=== PATIENT | female | born 1965 | race Caucasian/White ===

== ENCOUNTER 2022-09-01 07:14 | Day surgery (SDC) | payer OTHER, SELFPAY ==
[2022-09-01] MEDS: TETRACAINE 0.5% OPHTH 1 DROP EYE-LEFT ×2 (07:30→07:35)
[2022-09-01] MEDS: KETOROLAC OPHTH 0.5% 1 DROP EYE-LEFT ×2 (07:30→07:35)
[2022-09-01] MEDS: SODIUM CHLORIDE 0.9 % (FLUSH) 10 ML SYRINGE IVF (07:30)
--- NOTE | 2022-09-01 07:37 | SUR.PREOP ---
HOME COVID ANTIGEN TEST NEGATIVE DONE 08/31/22.
[2022-09-01 07:38] VITALS: BP 155/86; PULSE 62; RESP 16; TEMP 36.6; O2SAT 96
[2022-09-01 07:41] VITALS: BMI 30.2
[2022-09-01] MEDS: TETRACAINE 0.5% OPHTH 2 DROP EYE-LEFT (08:49)
[2022-09-01] MEDS: BALANCED SALT IRRIG SOLN 15 ML EYE-LEFT (08:54)
--- NOTE | 2022-09-01 08:55 | W.ANESCHARGE ---
Anesthesia Charges Start Date/Time Anesthesia Start Date: 09/01/22 Anesthesia Start Time: 08:46 Stop Date/Time Anesthesia Stop Date: 09/01/22 Summary Emergency: No
--- NOTE | 2022-09-01 09:08 | W.ANESCHARGE ---
Anesthesia Charges Start Date/Time Anesthesia Start Date: 09/01/22 Anesthesia Start Time: 08:46 Stop Date/Time Anesthesia Stop Date: 09/01/22 Anesthesia Stop Time: 09:18 Summary Emergency: No Extremes of Age: Over 68-CPT [id number]
[2022-09-01 09:17] VITALS: BP 152/96; PULSE 59; RESP 16; TEMP 36.7; O2SAT 97
--- NOTE | 2022-09-01 09:31 | W.ANESCHARGE ---
Anesthesia Charges Start Date/Time Anesthesia Start Date: 09/01/22 Anesthesia Start Time: 08:46 Stop Date/Time Anesthesia Stop Date: 09/01/22 Anesthesia Stop Time: 09:18 Summary Emergency: No
--- NOTE | 2022-09-01 13:25 | W.PM.OPTPROC ---
Procedure Note Date of procedure: 09/01/22 Will [facility] bill your pro fee for this procedure?: Yes Procedure Description: SURGEON: Ashley Chadwick MD PREOPERATIVE DIAGNOSIS: Nuclear sclerotic cataract, left eye. POSTOPERATIVE DIAGNOSIS: Nuclear sclerotic cataract, left eye. NAME OF OPERATION: Phacoemulsification of cataract with posterior chamber intraocular lens implantation in the left eye. ANESTHESIA: Topical. ESTIMATED BLOOD LOSS: Less than 2 cc. COMPLICATIONS: None. PATHOLOGY SPECIMEN: None. INDICATIONS: See consult note for details. The risks, benefits and alternatives of the procedure were explained to the patient, who elected to proceed and signed informed consent to do so. PROCEDURE: The patient was brought to the pre-holding area where the left eye was identified as the operative eye. I placed my initials above this eye. The patient received eye drops consisting of 0.5% tetracaine, 1% tropicamide, 10% phenylephrine, and 0.5% ketorolac. The patient was then brought to the operating room where the left eye was again identified as the operative eye. The eye was prepped with Betadine and draped in the usual sterile ophthalmic fashion. A #15 super-sharp blade was used to create a paracentesis site. 1% non-preserved intracameral lidocaine was injected into the anterior chamber. Endocoat was injected into the anterior chamber. A 2.4 mm keratome was used to create a three-plane self-sealing incision 1 mm anterior to the temporal limbus. A cystotome was used to create an anterior capsular leaflet. The Utrata forceps were used to extend this to form a continuous curvilinear capsulorrhexis. Hydrodissection was performed. The cataract was removed with phacoemulsification using the [id number]-hyfrusr technique. The irrigation and aspiration tip was used to remove the remaining cortex. Healon was injected into the capsular bag. An ANDREW ZCB00 intraocular lens of 15.0 diopters was injected into the capsular bag. The irrigation and aspiration tip was used to remove the remaining viscoelastic. Balanced salt solution on a cannula was used to hydrate the wound, and the wound was found to be watertight. The pupil was noted to be round. DISPOSITION: The patient was taken to the recovery room and discharged to home in stable condition. The patient was instructed to call me or go to the emergency department with any sudden change, including dramatic loss of vision, severe pain in the eye or eyebrow region, nausea, or vomiting. The patient will follow up in the clinic tomorrow morning. Surgeon: Ashley Chadwick MD
== END 2022-09-01 09:56 | disposition home or self-care (01) ==
PROVIDERS: PCP Internal Medicine; Visit Provider Ophthalmology
PROC: (CPT 66984; principal; 2022-09-01 07:30)
DX: H25.12 Age-related nuclear cataract, left eye (principal)
CPT/HCPCS: 66984; 00142; 99100; A9270; J2250; J3010; V2632

== ENCOUNTER 2022-09-15 09:34 | Day surgery (SDC) | payer OTHER, SELFPAY ==
[2022-09-15] MEDS: KETOROLAC OPHTH 0.5% 1 DROP EYE-RIGHT ×2 (09:50→09:55)
[2022-09-15] MEDS: TETRACAINE 0.5% OPHTH 1 DROP EYE-RIGHT ×2 (09:50→09:55)
[2022-09-15 09:51] VITALS: BP 164/77; PULSE 65; RESP 16; TEMP 36.7; O2SAT 97
[2022-09-15 09:53] VITALS: BMI 30.2
[2022-09-15] MEDS: SODIUM CHLORIDE 0.9 % (FLUSH) 10 ML SYRINGE IVF (10:10)
--- NOTE | 2022-09-15 10:27 | SUR.PREOP ---
HOME COVID TEST NEGATIVE, DONE ON 09/14/22.
[2022-09-15] MEDS: TETRACAINE 0.5% OPHTH 2 DROP EYE-RIGHT (11:16)
[2022-09-15] MEDS: BALANCED SALT IRRIG SOLN 15 ML EYE-RIGHT (11:21)
--- NOTE | 2022-09-15 11:22 | W.ANESCHARGE ---
Anesthesia Charges Start Date/Time Anesthesia Start Date: 09/15/22 Anesthesia Start Time: 11:14 Stop Date/Time Anesthesia Stop Date: 09/15/22 Anesthesia Stop Time: 11:47
[2022-09-15 11:56] VITALS: BP 174/95; PULSE 61; RESP 16; TEMP 36.3; O2SAT 99
--- NOTE | 2022-09-15 13:04 | W.ANESCHARGE ---
Anesthesia Charges Start Date/Time Anesthesia Start Date: 09/15/22 Anesthesia Start Time: 11:14 Stop Date/Time Anesthesia Stop Date: 09/15/22 Anesthesia Stop Time: 11:47 Summary Emergency: No
--- NOTE | 2022-09-15 15:54 | P.OPTPRC_ITS ---
Procedure Note Date of procedure: 09/15/22 Will [facility] bill your pro fee for this procedure?: Yes Procedure Description: SURGEON: Ashley Chadwick MD PREOPERATIVE DIAGNOSIS: Nuclear sclerotic cataract, right eye. POSTOPERATIVE DIAGNOSIS: Nuclear sclerotic cataract, right eye. NAME OF OPERATION: Phacoemulsification of cataract with posterior chamber intraocular lens implantation in the right eye. ANESTHESIA: Topical. ESTIMATED BLOOD LOSS: Less than 2 cc. COMPLICATIONS: None. PATHOLOGY SPECIMEN: None. INDICATIONS: See consult note for details. The risks, benefits and alternatives of the procedure were explained to the patient, who elected to proceed and s igned informed consent to do so. PROCEDURE: The patient was brought to the pre-holding area where the right eye was identified as the operative eye. I placed my initials above this eye. The patient received eye drops consisting of 0.5% tetracaine, 1% tropicamide, 10% phenylephrine, and 0.5% ketorolac. The patient was then brought to the operating room where the right eye was again identified as the operative eye. The eye was prepped with Betadine and draped in the usual sterile ophthalmic fashion. A #15 super-sharp blade was used to create a paracentesis site. 1% non-preserved intracameral lidocaine was injected into the anterior chamber. Endocoat was injected into the anterior chamber. A 2.4 mm keratome was used to create a three-plane self-sealing incision 1 mm anterior to the temporal limbus. A cystotome was used to create an anterior capsular leaflet. The Utrata forceps were used to extend this to form a continuous curvilinear capsulorrhexis. Hydrodissection was performed. The cataract was removed with phacoemulsification using the [id number] technique. The irrigation and aspiration tip was used to remove the remaining cortex. Healon was injected into the capsular bag. An ANDREW ZCB00 intraocular lens of 14.0 diopters was injected into the capsular bag. The irrigation and aspiration tip was used to remove the remaining viscoelastic. Balanced salt solution on a cannula was used to hydrate the wound, and the wound was found to be watertight. The pupil was noted to be round. DISPOSITION: The patient was taken to the recovery room and discharged to home in stable condition. The patient was instructed to call me or go to the emergency department with any sudden change, including dramatic loss of vision, severe pain in the eye or eyebrow region, nausea, or vomiting. The patient will follow up in the clinic tomorrow morning. Surgeon: Ashley Chadwick MD
== END 2022-09-15 12:15 | disposition home or self-care (01) ==
PROVIDERS: PCP Internal Medicine; Visit Provider Ophthalmology
PROC: (CPT 66984; principal; 2022-09-15 09:45)
DX: H25.11 Age-related nuclear cataract, right eye (principal)
CPT/HCPCS: 66984; 00142; A9270; J2250; J3010; V2632

== ENCOUNTER 2024-02-06 07:32 | Day surgery (SDC) | payer OTHER, SELFPAY ==
[2024-02-06] VITALS (15 sets, daily range): BP systolic 124–177; BP diastolic 68–96; PULSE 63–78; RESP 16; TEMP 36.2–36.7; O2SAT 95–100; BMI 30.8
--- OUTSIDE RECORDS SUMMARY | 2024-02-06 07:35 | XMS_ITS | Clinical Summary ---
Author Name Unknown Organization [facility] Address [place], [place] [address] Care Team Providers Care Senior It Project Manager Name Role Phone Madison Alexander MD Primary Care Provider [phone] Allergies Active Allergy Reactions Criticality Noted Date Comments Lisinopril Cough 02/27/2014 Omeprazole Rash 11/14/2013 Prednisone Vomiting Medium 11/08/2022 Throws up Sulfa (Sulfonamide Antibiotics) Rash 01/27/2012 [facility] HUT Comment: [facility] Medications Medication Sig Dispensed Refills Start Date End Date Status Calcium-Vitamin D3-Vitamin K (VIACTIV) 500-500-40 mg-unit-mcg chewIndications:Ash garvin general medical examination at a health care facility Take 1 tablet by mouth once daily. 0 03/30/2019 Active fluticasone (50 mcg per actuation) nasal solution (FLONASE)Indications :Allergic rhinitis, unspecified seasonality, unspecified trigger Inhale 1 [place] to both nostrils once daily. 48 g 3 06/22/2023 Active levothyroxine (SYNTHROID) 88 mcg tabletIndications:Ac quired hypothyroidism Take 1 Tablet (88 mcg) by mouth before breakfast. 90 Tablet 3 06/22/2023 Active losartan-hydrochloro thiazide, 50-12.5 mg, (HYZAAR) 50-12.5 mg tabletIndications:Hy pertension Take 1 Tablet by mouth once daily. 90 Tablet 3 06/22/2023 Active oxyCODONE-acetaminop hen (Percocet) 5-325 mg per tabletIndications:Ca lculus of gallbladder without cholecystitis without obstruction,Abdomina l pain, unspecified abdominal location Take 1-2 Tablets by mouth every 6 hours if needed for Pain. Max acetaminophen dose: 4000mg in 24 hrs. 10 Tablet 01/03/2024 Active Active Problems Problem Noted Date Diagnosed Date Pap smear for cervical cancer screening 06/30/20 Overview: 06/2023 NIL/HPV negative. Plan: Pap/HPV due 06/2028 Mixed hyperlipidemia 06/22/2023 HTN (hypertension) 06/06/2021 Degenerative TFCC tear, right 10/26/2017 Allergic rhinitis, cause unspecified 01/27/2012 Hypothyroidism Overview: Family history of colon cancer Resolved Problems Problem Noted Date Diagnosed Date Resolved Date Foreign body (FB) in soft tissue 07/21/2020 06/09/2022 Wrist pain, right 10/26/2017 06/09/2022 Tendonitis of elbow, left 10/06/2012 Vitamin D deficiency 09/14/2012 019 UTI (lower urinary tract infection) 06/26/2012 02/11/2014 HTN (hypertension) 01/27/2012 4 Eosinophilia 10/12/2011 02/28/2014 Overview: Diarrhea 09/24/2011 02/27/2014 Overview: Diarrhea Other and unspecified noninf ectious gastroenteritis and colitis 09/08/2011 02/11/2014 Overview: Gastroenteritis Abdominal pain, unspecified site 09/08/2011 02/27/2014 Overview: Abdominal Pain Unspecified sinusitis (chronic) 07/19/2011 02/28/2014 Overview: Sinusitis Plantar fasciitis 04/23/2011 06/09/2022 Screening for malignant neop lasm of the cervix 01/19/2011 02/27/2014 Overview: Cervical Pap Smear Palpitations 12/14/2010 02/27/2014 Overview: Palpitations-negative event monitor 12/10 Anxiety state, unspecified 01/06/2010 0 02/28/2014 Overview: Anxiety Disorder NOS Hypertension 04/21/2020 Overview: Encounters Date Type Department Care Team Description 02/01/2024 3:30 PM CDT Preop Visit [facility] [address] [place] [address] Rosi Lakhani MD Pre-Op Exam (02-06-2024) 02/01/2024 Travel 01/19/2024 Medical Messaging [facility] [address] [place] [address] Brandi Dumont MD gall bladder surgery 01/17/2024 2:30 PM CDT Office Visit [facility] [address] [place] [address] Brandi Dumont MD Consult (gallstones) 01/17/2024 Travel 01/02/2024 10:02 PM CDT - 01/03/2024 5:53 AM CDT Emergency [facility] [address] [place] [address] Camacho Omalley MD Calculus of gallbladder without cholecystitis without obstruction (Primary Dx); Abdominal pain, unspecified abdominal location Discharge Disposition: Home Self Care 01/02/2024 Travel from Last 3 Months Immunizations Name Administration Dates Next Due COVID-19 vaccine ([employer] NTech 30mcg/0.3mL) PFMDV 12/25/2020,12/05/2020 Influenza, IIV3 (Age 6-35 mos) 05/26/2019 Influenza, IIV4 06/22/2023,,06/02/2020,08/03/20 18 Influenza,CCIIV4 PRESERV FREE 06/12/2022 Td (Age >=7 Years) 04/13/1994 Tdap 07/05/2020,12/14/2010 Zoster (Shingrix-RZV, recombinant) 05/22/2018, Zoster (Zostavax-ZVL, live) 10/16/2013 Family History Medical History Relation Name Comments Heart Disease Father [place] at 62 yr Hypertension Father Thyroid Disease Father Thyroid Disease Maternal Aunt Cancer-colon Mother age 65 Thyroid Disease Mother Thyroid Disease Paternal Grandfather Heart Disease Paternal Grandmother [place] at age 62 Thyroid Disease Sister Cancer-breast No Family History Relation Name Status Comments Father Alive Maternal Aunt Mother (Age 65) colon canc er Paternal Grandfather Paternal Grandmother Sister Social History Tobacco Use Types Packs/Day Years Used Date Smoking Tobacco: Never Smokeless Tobacco: Never Tobacco Cessation:Counseling Given: Yes Alcohol Use Standard Drinks/Week Comments Yes 1 (1 standard drink = 0.6 oz pur e alcohol) 1 drink per week sometimes PHQ-2 Answer Date Recorded PHQ-2 TOTAL SCORE 0 06/22/2023 Social Connections Answer Date Recorded Frequency of Communication with Friends and Fami ly 0 03/11/2023 Financial Resource Strain Answer Date R ecorded Difficulty of Paying Living Expenses 3 03/11/2023 Difficulty of Paying Living Expenses Not on file 03/11/2023 Food Insecurity Answer Date Recorded Worried About Running Out of Food in the Last Ye ar 1 03/11/2023 Transportation Needs Answer Date Record ed Lack of Transportation (Medical) 1 03/11/2023 Housing Stability Answer Date Recorded Unable to Pay for Housing in the Last Year 1 03/11/2023 Sex and Gender Information Value Date Recorded Sex Assigned at Not on file Gender Identity Not on file Sexual Orientation Not on file Obstetrics History Para Term AB IAB SAB Ectopic Multiple Livin g Live Births 2 2 Date Outcome GA Total Labor Labor/2nd/3rd Weight Sex Delivery Anes PTL Marta A1 A5 Name Cl in Last Filed Vital Signs Vital Sign Reading Time Taken Comments Blood Pressure 122/88 02/01/2024 3:24 PM CDT Pulse 78 02/01/2024 3:24 PM CDT Temperature 36.2 ??C (97.2 ??F) 02/01/2024 3:24 PM CD T Respiratory Rate 18 01/02/2024 10:04 PM CDT Oxygen Saturation 95% 02/01/2024 3:24 PM CDT Inhaled Oxygen Concentration - - Weight 74 kg (163 lb 3.2 oz) 02/01/2024 3:24 PM CDT Height 154.9 cm (5' 1) 01/02/2024 10:04 PM CDT Body Mass Index 30.84 01/02/2024 10:04 PM CDT Plan of Treatment Upcoming Encounters Date Type Department Care Team (Late st Contact Info) Description 02/06/2024 8:00 AM CDT Office Visit [facility] [address] [facility] [place] [address] Brandi Dumont MD [address] [place] [address] 02/15/2024 3:40 PM CDT Office Visit [facility] [address] [place] [address] Madison Alexander MD [address] [place] [address] Health Maintenance Due Date Last Done Comments HIV for age 15-65 12/30/1978 Influenza for age 50-64 06/03/2024 06/22/20, 06/12/2022, 06/04/2021, Additional history exists Mammogram for age 45-75 06/16/2024 06/16/20, 04/27/2022, 04/01/2021, Additional history exists BMI (ht and wt on same day) for age 18+ 06/22/2024 06/22/2023, 03/30/2023, 08/25/2022, Additional history exists Depression screening for age 12+ 06/22/2024 06/22/2023, 06/09/2022, 06/04/2021, Additional history exists Colonoscopy through age 75 07/04/202407/04, 07/29/2014, 07/29/2014 Lipids for age 45-75 03/30/2028 03/30/2023, 03/30/2023, 06/09/2022, Additional history exists Pap test for age 21-65 06/22/2028 , 06/22/2023, 04/21/2020, Additional history exists Tetanus booster 07/05/2030 07/05/2020, 12/01, 04/13/1994 Hepatitis C screening for age 18-79 Completed 03/22/2018 Zoster (shingles) series for age 50+ Completed 05/22/2018, 03/22/2018, 10/16/2013 Tdap Completed 07/05/2020, 12/14/2010 COVID-19 vaccine series Completed 07/03/20, 06/12/2022, 01/05/2022, Additional history exists Pneumococcal series for age 6-64 Aged Out No longer eligible based on patient's age to complete this topic Procedures Procedure Name Priority Date/Time Associated Diagnosis Comments TROPONIN T (HS) ONE TIME Timed 01/03/2024 1:12 AM CDT US ABDOMEN LIMITED GALLBLADDER STAT 01/02/2024 11:28 PM CDT CBC WITH AUTO DIFFERENTIAL STAT 01/02/2024 10:34 PM CDT TROPONIN T (HS) ACUTE W/2HR REFLEX STAT 01/02/2024 10:34 PM CDT LIPASE STAT 01/02/2024 10:34 PM CDT COMP METABOLIC PANEL STAT 01/02/2024 10:34 PM CDT CBC WITH AUTO DIFFERENTIAL STAT 01/02/2024 10:34 PM CDT BEDSIDE US STUDY ARCHIVE Routine 01/02/2024 10:14 PM CDT EKG 12 LEAD STAT 01/02/2024 10:12 PM CDT HPV THIN PREP Routine 06/22/2023 4:23 PM CDT Pap smear for cervical cancer screening XR MAMMO DRE BILAT SCREEN Routine 06/16/2023 4:23 PM CDT Encounter for screening mammogram for malignant neoplasm of breast LIPID PANEL W REFLEX MEASURED LDL Routine 03/30/2023 5:04 PM CDT Mixed hyperlipidemia COLONOSCOPY 07/04/2019 7:23 AM CDT ANTI HCV Routine 03/22/2018 5:18 PM CDT Need for hepatitis C screening test from Last 3 Months or Most Recently Relevant to Health Maintenance Results * (ABNORMAL) TROPONIN T (HS) ONE TIME (01/03/2024 1:12 AM CDT) TROPONIN T HS 12(H) 6-10 ng/L ng/L 01/03/2024 1:34 AM CDT [facility] Blood BLOOD SPECIMEN / Unknown IV Start / Unknown 01/03/2024 1:12 AM CDT 01/03/2024 1:16 AM CDT Camacho Omalley MD CHEMISTRY Performing Organization Address City/State/[facility] Co de Phone Number [facility] [address] [place] [address] * US ABDOMEN LIMITED GALLBLADDER (01/02/2024 11:28 PM CDT) Anatomical Region Laterality Modality Abdomen Ultrasound 01/02/2024 11:4 8 PM CDT Impressions 01/02/2024 11:48 PM CDT Cholelithiasis without evidence of cholecystitis. Dictated by Seb Guthrie MD @ 01/02/2024 11:48:38 PM (Electronically Signed) Narrative 01/02/2024 11:48 PM CDT For Patients: ??As a result of the Cures Act, medical imaging exams and procedure reports are released immediately into your electronic medical record. ??You may view this report before your referring provider. ??If you have questions, please contact your health care provider. INDICATION: Right upper quadrant abdominal pain. TECHNIQUE: Ultrasound abdomen limited. Sonographic images of the gallbladder were obtained using salmon-scale and color Doppler images. COMPARISON: None. FINDINGS: Gallbladder: Multiple mobile shadowing stones. Normal wall thickness. No pericholecystic fluid. Negative sonographic Duron`s sign. ?? Common bile duct: 3 mm. ?? Procedure Note Seb Guthrie MD - 01/02/2024 For Patients: As a result of the 21st Century Cures Act, medical imagingexams and procedure reports are released immediately into your electronicmedical record. You may view this report before your referring provider.If you have questions, please contact your health care provider. INDICATION: Right upper quadrant abdominal pain. TECHNIQUE: Ultrasound abdomen limited. Sonographic images of the gallbladder wereobtained using salmon-scale and color Doppler images. COMPARISON: None. FINDINGS: Gallbladder: Multiple mobile shadowing stones. Normal wall thickness. Nopericholecystic fluid. Negative sonographic Duron`s sign. Common bile duct: 3 mm. IMPRESSION: Cholelithiasis without evidence of cholecystitis. Dictated by Seb Guthrie MD @ 01/02/2024 11:48:38 PM (Electronically Signed) Camacho Omalley MD * (ABNORMAL) TROPONIN T (HS) ACUTE W/2HR REFLEX (01/02/2024 10:34 PM CDT) TROPONIN T HS 11(H) 6-10 ng/L ng/L 01/02/2024 11:30 PM CDT [facility] Blood BLOOD SPECIMEN / Unknown Butterfly / Unknown 01/02/2024 10:34 PM CDT 01/02/2024 10:44 PM CDT [facility] - 01/02/2024 11:30 PM CDT hs-cTnT (Elecsys Troponin T Gen 5) concentration (s) above the sex-specific 99th percentile (16 ng/L or greater for males or 11 ng/L or greater for females) are indicative of myocardial injury. If initial hs-cTnT <=100 ng/L at presentation, a 0h/2h ABSOLUTE (ng/L) delta change (rising or falling) of >=10 ng/L suggests a significant change, whereas a 0h/2h delta change <=3 ng/L suggests no significant change. If initial hs-cTnT >100 ng/L at presentation, a 0h/2h/ RELATIVE (percent, %) delta change of 20% is suggested to distinguish patients with acute vs. chronic myocardial injury. There are multiple etiologies that can cause hs-cTnT increases above the 99th percentile (myocardial injury) other than acute myocardial infarction. Clinical context and careful clinical evaluation are critical for diagnosis and risk-stratification. The diagnosis of acute myocardial infarction requires a rising and/or falling pattern in hs-cTnT concentrations with at least one value above the sex-specific 99th percentile PLUS at least one of the following clinical criteria: ischemic symptoms, new or presumed new significant ST-T wave changes or new LBBB, development of pathological Q waves, imaging evidence of new loss of viable myocardium or new regional wall motion abnormality, or identification of intracoronary atherothrombosis or an acute angiographic culprit on coronary angiography. In appropriate low-risk patients with a non-ischemic electrocardiogram without active chest pain with a symptom onset >3-hours without recurrence, a single initial hs-cTnT<6 ng/L identifies patient with a very low risk in emergency department patient population. Camacho Omalley MD CHEMISTRY [facility] [address] [place] [address] * (ABNORMAL) CBC WITH AUTO DIFFERENTIAL (01/02/2024 10:34 PM CDT) [facility] [address] WHITE BLOOD COUNT 8.6 4.5 - 11.0 thou/cu mm 01/02/2024 10:48 PM CDT [facility] RED BLOOD COUNT 4.05 4.00 - 5.20 mil/cu mm 01/02/2024 10:48 PM CDT [facility] HEMOGLOBIN 12.6 12.0 - 16.0 g/dL 01/02/2024 10:48 PM CDT [facility] HEMATOCRIT 37.8 33.0 - 51.0 % 01/02/2024 10:48 PM CDT [facility] MCV 93 80 - 100 fL 01/02/2024 10:48 PM CDT [facility] MCH 31.1 26.0 - 34.0 pg 01/02/2024 10:48 PM CDT [facility] MCHC 33.3 32.0 - 36.0 g/dL 01/02/2024 10:48 PM T [facility] RDW 12.0 11.5 - 15.5 % 01/02/2024 10:48 PM CDT [facility] PLATELET COUNT 401 140 - 440 thou/cu mm 01/02/2024 10:48 PM [facility] MPV 8.9 6.5 - 11.0 fL 01/02/2024 10:48 PM [facility] % NEUT 45.9 % 01/02/2024 10:48 PM [facility] % LYMPH 43.1 % 01/02/2024 10:48 PM [facility] % MONO 7.2 % 01/02/2024 10:48 PM [facility] % EOS 3.5 % 01/02/2024 10:48 PM [facility] % BASO 0.3 % 01/02/2024 10:48 PM [facility] ABSOLUTE NEUTROPHILS 3.9 1.7 - 7.0 thou/cu mm 01/02/2024 10:48 PM [facility] ABSOLUTE LYMPHOCYTES 3.7(H) 0.9 - 2.9 thou/cu mm 01/02/2024 10:48 PM [facility] ABSOLUTE MONOCYTES 0.6 <0.9 thou/cu mm 01/02/2024 10:48 PM [facility] ABSOLUTE EOSINOPHILS 0.3 <0.5 thou/cu mm 01/02/2024 10:48 PM [facility] ABSOLUTE BASOPHILS 0.0 <0.3 thou/cu mm 01/02/2024 10:48 PM [facility] Blood BLOOD SPECIMEN / Unknown Butterfly / Unknown 01/02/2024 10:34 PM CDT 01/02/2024 10:44 PM CDT Camacho Omalley MD HEMATOLOGY [facility] [address] [place] [address] * (ABNORMAL) LIPASE (01/02/2024 10:34 PM CDT) LIPASE 70.7(H) 13.0 - 60.0 IU/L 01/02/2024 11:30 PM [facility] Blood BLOOD SPECIMEN / Unknown Butterfly / Unknown 01/02/2024 10:34 PM CDT 01/02/2024 10:44 PM CDT Camacho Omalley MD CHEMISTRY [facility] [address] [place] [address] * (ABNORMAL) COMP METABOLIC PANEL (01/02/2024 10:34 PM CDT) SODIUM 138 136 - 145 mmol/L 01/02/2024 11:33 PM [facility] POTASSIUM 3.7 3.5 - 5.1 mmol/L 01/02/2024 11:33 PM [facility] CHLORIDE 101 98 - 107 mmol/L 01/02/2024 11:33 PM [facility] CO2,TOTAL 24 22 - 29 mmol/L 01/02/2024 11:33 PM [facility] ANION GAP 13 5 - 18 01/02/2024 11:33 PM [facility] GLUCOSE 115(H) 70 - 99 mg/dL 01/02/2024 11:33 PM [facility] CALCIUM 9.5 8.8 - 10.2 mg/dL 01/02/2024 11:33 PM [facility] BUN 23 8 - 23 mg/dL 01/02/2024 11:33 PM [facility] CREATININE 0.82 0.50 - 0.90 mg/dL 01/02/2024 11:33 PM [facility] BUN/CREAT RATIO 28(H) 10 - 20 11:33 PM [facility] eGFR 82(L) >90 mL/min/1.7 3m2 01/02/2024 11:33 PM [facility] Comment:As of 2021, eG FR is calculated by the CKD-EPI creatinine equation without race adjustment. ??eGFR can be influenced by muscle mass, exercise, and diet. ??The reported eGFR is an estimation only and is only applicable if the renal function is stable. ALBUMIN 4.1 4.0 - 4.9 g/dL 01/02/2024 11:33 PM CDT [facility] PROTEIN,TOTAL 6.6 6.0 - 8.0 g/dL 01/02/2024 11:33 PM CDT [facility] BILIRUBIN,TOTAL <0.2 0.0 - 1.2 mg/dL 01/02/2024 11:33 PM CDT [facility] ALK PHOSPHATASE 76 35 - 104 IU/L 01/02/2024 11:33 PM CDT [facility] ALT (SGPT) 15 10 - 35 IU/L 01/02/2024 11:33 PM CDT [facility] AST (SGOT) 19 10 - 35 IU/L 01/02/2024 11:33 PM CDT [facility] Blood BLOOD SPECIMEN / Unknown Butterfly / Unknown 01/02/2024 10:34 PM CDT 01/02/2024 10:44 PM CDT Camacho Omalley MD CHEMISTRY Performing Organization Address City/[facility]/ZIP Co de Phone Number [facility] [address] [place] [address] * EKG 12 LEAD (01/02/2024 10:12 PM CDT) Interpretation Normal sinus rhythm Low voltage QRS Borderline ECG No previous ECGs available BEYOND NOW Ventricular Rate 70 BPM BEYOND NOW Atrial Rate 70 BPM BEYOND NOW P-R Interval 156 ms BEYOND NOW QRS Duration 82 ms BEYOND NOW QT 404 ms BEYOND NOW QTc 436 ms BEYOND NOW P Madison 52 degrees BEYOND NOW R Madison 23 degrees BEYOND NOW T Madison 63 degrees BEYOND NOW 01/02/2024 10:1 2 PM CDT 01/02/2024 11:48 PM CDT Camacho Omalley MD EKG ORD Performing Organization Address City/[facility]/ZIP Co de Phone Number [facility] NOW [place], [place] * HPV HIGH RISK (06/22/2023 4:23 PM CDT) TYPE 16 Negative Negative 06/27/2023 2:05 PM CDT [facility] TYPE 18 Negative Negative 06/27/2023 2:05 PM CDT [facility] OTHER HIGH RISK TYPES Negative Negative 06/27/2023 2:05 PM CDT [facility] Other (Cervical) Non-Blood / Unknown 06/22/2023 4:23 PM CDT 06/23/2023 12:36 PM CDT Narrative [facility] - 06/27/2023 2:05 PM CDT HPV types 16, 18, 31, 33, 35, 39, 45, 51, 52, 56, 58, 59, 66 and 68 DNA were undetectable or below the pre-set threshold. Methodology: Accion Vicki 4800 HPV Test Madison Alexander MD MICROBIOLOGY [facility] [address] [place] [address], [place] * XR MAMMO DRE BILAT SCREEN (06/16/2023 4:23 PM CDT) Anatomical Region Laterality Modality BREASTS, Breast Left, Breast Right Bilateral Mammography 06/17/2023 7:17 AM CDT Impressions 06/17/2023 11:53 AM CDT 1. Small nodular densities in the lateral LEFT breast on the craniocaudad view are in the lower outer quadrant on the tomographic views. The more lateral of the nodules has increased in size. Recommend correlation with ultrasound. 2. No evidence malignancy in the RIGHT breast. 3. BI-RADS Category 0: Incomplete - Need Additional Imaging Evaluation and/or Prior Mammograms for Comparison. A member of the breast health care team will contact the patient to schedule the required additional imaging appointment(s). Dictated by: Ami Maldonado MD @06/17/2023 7:17:27 AM/MICHELLE:vickie PATIENTS: You will also receive a letter with your examination results in an easy to read format. ??If you have questions about your results, please contact your referring provider. Narrative 06/17/2023 11:53 AM CDT For Patients: As a result of the 21st Century Cures Act, medical imaging exams and procedure reports are released immediately into your electronic medical record. ??You may view this report before your referring provider. ?? If you have questions, please contact your health care provider. BILATERAL DIGITAL SCREENING MAMMOGRAM WITH TOMOSYNTHESIS AND COMPUTER-AIDED DETECTION, 06/16/2023 INDICATION: Screening. TECHNIQUE: BILATERAL screening mammogram. COMPARISON: 04/27/2022 and 04/01/2021. FINDINGS: The breasts are heterogeneously dense, which may obscure small masses. Benign-appearing calcifications in both breasts. Three small well-circumscribed densities are present deep in the lateral LEFT breast on the craniocaudad view. The most lateral of these has increased in size. The other two are unchanged. No other suspicious mass, architectural distortion or malignant calcification in either breast. Madison Alexander MD MAMMO * (ABNORMAL) LIPID PANEL W REFLEX MEASURED LDL (03/30/2023 5:04 PM CDT) CHOLESTEROL,TOTAL 288(H) 100 - 199 mg/dL 03/30/2023 5:56 PM [facility] TRIGLYCERIDES 633(H) <150 mg/dL 03/30/2023 5:56 PM [facility] HDL CHOLESTEROL 55 >40 mg/dL 3 5:56 PM [facility] NON-HDL CHOLESTEROL 233(H) <145 mg/dl 03/30/2023 5:56 PM [facility] CHOL/HDL RATIO 5.24(H) <4.50 03/30/2023 5:56 PM [facility] LDL CHOLESTEROL 3 5:56 PM [facility] Comment:Invalid LDL when Tri g >400, reflexed to measured LDL VLDL CHOLESTEROL COMMENT 03/30/2023 5:56 PM [facility] Comment:Unable to calculate VLDL. PROVIDER ORDERED STATUS RANDOM 03/30/2023 5:56 PM [facility] Blood BLOOD SPECIMEN / Unknown Venipuncture / Unknown 03/30/2023 5:04 PM CDT 03/30/2023 5:06 PM CDT Madison Alexander MD CHEMISTRY [facility] [address] [place] [address] * COLONOSCOPY (07/04/2019 7:23 AM CDT) 07/04/2019 7:23 AM CDT Narrative Transcriptions Clive Guadalupe MD - 07/04/2019 8:31 AM CDTThis note has been archived and cannot be retrieved at this time. Clive Guadalupe MD PROCEDURE ORD * ANTI HCV [[id number]] (03/22/2018 5:18 PM CDT) HEPATITIS C ANTIBODY Non-React hanna Non-React hanna 03/23/2018 5:13 PM CDT [facility] Comment:Antibodies to HCV no t detected; does not exclude the possibility of exposure to HCV. Blood BLOOD SPECIMEN / Unknown Venipuncture / Unknown 03/22/2018 5:18 PM CDT 03/22/2018 5:18 PM CDT Madison Alexander MD SEND OUTS [facility] [address] [place] [address], from Last 3 Months or Most Recently Relevant to Health Maintenance Care Teams Senior It Project Manager Relationship Specialty Start Date End Date Madison Alexander MD [address] [facility] [place] [address] PCP - General Internal Medicine 02/13/14
[2024-02-06] MEDS: LACTATED RINGERS 1000 ML 1,000 ML 100 ML IV ×2 (08:15→10:43)
[2024-02-06] MEDS: SODIUM CHLORIDE 0.9 % (FLUSH) 10 ML SYRINGE IVF (08:16)
[2024-02-06] MEDS: CEFAZOLIN 1 GM inj IVP (09:47)
--- NOTE | 2024-02-06 10:15 | W.ANESCHARGE ---
Anesthesia Charges Start Date/Time Anesthesia Start Date: 02/06/24 Anesthesia Start Time: 09:37 Stop Date/Time Anesthesia Stop Date: 02/06/24 Anesthesia Stop Time: 11:04
[2024-02-06] MEDS: BUPIVACAINE 0.25% 30 ML INJECTION (10:50)
--- NOTE | 2024-02-06 11:01 | P.GSOP_ITS ---
Operative Note Date of procedure: 02/06/24 Pre-op diagnosis: Biliary colic Post-op diagnosis: Same Type of Procedure: Laparoscopic cholecystectomy Indications: The patient is a 58-year-old female who presented to the emergency department recently after developing severe epigastric pain and nausea after eating rich food. She was found to have gallstones on ultrasound. After discussion of symptoms she has had discomfort in the epigastric and right upper abdomen though it is not always associated with food. After discussion of options, reviewing her images in symptoms, she elected to proceed with cholecystectomy. Procedure Description: After discussing the risks and benefits of the procedure, the patient signed informed consent.? The operative site was marked and the patient was brought to the operating room and placed on the operating table in supine position.? Care was taken to pad the patient's pressure points.?? The patient was then intubated by anesthesia.?? The operative site was then prepped and draped in the usual sterile fashion.? A time-out was then performed. Entrance to the abdomen was gained via a 5 mm Visiport in the left upper quadrant. The abdomen was insufflated and briefly surveyed for signs of injury. There was none. A 10 mm umbilical port was placed as well as 2 working ports along the right costal margin, all under direct vision. The patient was then placed in reverse Trendelenburg position with the right side up. The gallbladder fundus was grasped and retracted cephalad. A small amount of dissection was needed to free omental adhesions from the gallbladder. The infundibulum was grasped. A combination of hook cautery and blunt dissection was used to carefully begin to dissect out the cystic duct and artery. Medially and anteriorly, these were able to be visualized and dissected, however laterally it appeared as though the gallbladder infundibulum was directly entering a large tubular structure. Lateral and posteriorly, this structure appeared adherent The common bile duct was visible distally and was further from the area. The large tubular structure laterally was what appeared to be adherent to the infundibulum of the gallbladder. Upon inspection, the lateral/posterior tubular structure was pulsatile. Medially, it was not - this was the presumed common bile duct. Therefore, it appeared as though the infundibulum was adherent to the right hepatic artery. I then elected to avoid this area and in the meantime dissect farther up the cystic plate. Cautery was used to dissect the gallbladder free from the liver, carefully dissecting and examining the fibrous tissue before dividing given the aberrant appearing anatomy below. The gallbladder was dissected off the cystic plate more than fpc up the liver bed. There were no other intervening structures. I then turned my attention back down to the cystic duct and artery. I first dissected out the cystic artery. This was in its usual location. This was dissected out just below the node of Calot. The cystic duct was posterior to this. Anteriorly and medially as well as posteriorly it appeared to be free but laterally, it was adherent to the larger pulsatile artery. Starting on the gallbladder infundibulum itself, I carefully dissected the wispy fibers which were tethering this vascular structure to the gallbladder. Cautery was used to divide them, however I stayed away from the vascular structure, again dissecting only on the infundibulum. Once this was done this allowed the vessel to fall away from the gallbladder slightly, enough so that I was able to carefully dissect circumferentially around the cystic duct to confidently identify it. The duct was of normal caliber without any noted impacted stones. The cystic artery had been dissected out previously as mentioned and again this was in its usual location medially to the cystic duct. I again assessed the area to ensure the anatomy was appropriately identified. What appeared to be the common bile duct was deeper and more distal again away from the area of cystic duct that I had di ssected out. This was nonpulsatile. The pulsatile vessel which was located medially did appear to come from behind the cystic duct, gave off the cystic artery, and entered into the liver distally. Again, I had been able to safely dissect this away without any injury to the vessel. Once this was done and there were only 2 small structures entering the gallbladder, the cystic duct and artery were each clipped with 2 clips proximally and 1 clip distally and transected with the scissors. The gallbladder was then taken off of the liver bed and removed from the abdomen using an Endo-Catch bag. The gallbladder bed was surveyed for hemostasis which appeared excellent. The ports were removed and the abdomen desufflated. The umbilical port fascia was closed with 0 Vicryl. The skin was closed with absorbable subcuticular suture. Sterile dressings were then applied. Instrument sponge and needle counts were correct at the end of the case. The patient was then woken and transferred to the PACU in stable condition. ? The patient tolerated the procedure well. Findings: 1. Omental adhesions to the gallbladder 2. Stones within the gallbladder 3. Apparent Right hepatic artery adherent to the gallbladder infundibulum Anesthesia: GETA Surgeon: Brandi Dumont MD Estimated blood loss (mL): 5 Specimen: Gallbladder Condition: stable Disposition: PACU
--- NOTE | 2024-02-06 11:05 | W.ANESCHARGE ---
Anesthesia Charges Start Date/Time Anesthesia Start Date: 02/06/24 Anesthesia Start Time: 09:37 Stop Date/Time Anesthesia Stop Date: 02/06/24 Anesthesia Stop Time: 11:04
[2024-02-06] MEDS: fentaNYL 100 MCG/2 ML inj 50 MCG IVP ×3 (11:11→12:00)
[2024-02-06] MEDS: METOCLOPRAMIDE HCL 5 MG/ML INJ 10 MG IVP (11:22)
[2024-02-06] MEDS: ACETAMINOPHEN 325 MG TABLET PO (12:00)
[2024-02-06] MEDS: hydrOXYzine pamoate 25 MG CAPSULE PO (12:00)
== END 2024-02-06 14:15 | disposition home or self-care (01) ==
PROVIDERS: PCP Internal Medicine; Visit Provider Surgery
PROC: 0FT44ZZ Resection of Gallbladder, Percutaneous Endoscopic Approach (ICD-10-PCS; CPT 47562; principal; 2024-02-06 09:00)
DX: K80.20 Calculus of gallbladder without cholecystitis without obstruction (principal); K82.8 Other specified diseases of gallbladder
CPT/HCPCS: 47562; 00790; A9270; J0665; J0690; J1100; J1885; J2250; J2371; J2405; J2704; J2765; J3010; J3490; J7120